=== PATIENT | female | born 1945 | race Caucasian/White ===

== ENCOUNTER → 2017-01-22 | Outpatient (CLI) | payer OTHER ==
[~2017-01-22] MED LIST: ALTACE; APIDRA; AVANDIA; CIPRO250 MG PO; EVISTA60 MG; GLYNASE; HUMALOG MI100 UNIT/4; LASIX20 MG; LIPITOR40 MG; LISINOPRIL-HCTZ1 T21; METFORMIN; METOPROLOL SUCC25 MG; NITROQUICK0.4 MG; NORVASC; PREDNISONE PO; PRILOSEC; PRILOSEC20 M1; ROBAXIN500 MG PO; TYLENOL/CODEINE1 TA1 PO; VITAMIN D250000 UNIT PO; VYTORIN; ZOFRAN PO
--- NOTE | ~2017-01-22 | MY11 ---
[facility] A Service of [facility] RADIOLOGY TEXT RESULTS PATIENT: JUSTIN KELLEY LOCATION: [facility] : 43 UNIT #: [id number] AGE: [address]: CORNELL EMMANUEL MD SEX: F ORDER DR: [id number] [address] [address] [id number] O MR#: [id number] Acc #: [id number] NAME: JUSTIN KELLEY : 1945 SEX: F STUDY DATE/TIME: 01/22/2017 11:30 UNIT: [facility] ROOM: STUDY DESCRIPTION: MY Mammogram Screening Dig Ck Attending Physician: Ilda Emmanuel M.D. Referring Physician: Ilda Emmanuel M.D. Ordering Physician: Ilda Emmanuel M.D. Primary Care Physician: Ilda Emmanuel M.D. MEDICAL IMAGING REPORT This report is preliminary unless electronic signature is present. EXAM Digital screening mammogram 01/22/2017 HISTORY 71-year-old woman, no risk elevation. Annual screen. COMPARISON STUDIES Outside mammograms 01/12/2011 and 03/04/2012 06/06/2013. FINDINGS Digital imaging of each breast was completed utilizing a two-view examination of each breast in craniocaudal and mediolateral-oblique projections. Review and interpretation of digital mammograms include a second review in conjunction with FDA-approved CAD device. There is a normal parenchymal presentation bilaterally consistent with the patient's age. There are no breast masses imaged and no parenchymal asymmetry is visualized. There are no suspicious microcalcifications and I see no focal architectural disturbance. IMPRESSION Negative screening digital mammogram. One-year followup recommended. Patients over the age of 40 are entered into a reminder system with target due date for the next mammogram. A result letter will also be sent to the patient. BIRADS: 1 Negative ADDENDUM Breast parenchyma is fatty replaced Dictated by... [facility] A Service [facility] RADIOLOGY TEXT RESULTS PATIENT: JUSTIN KELLEY LOCATION: [facility] : 43 UNIT #: [id number] AGE: [address]: CORNELL EMMANUEL MD SEX: F ORDER DR: Antonio Monk M.D. THIS IS AN ELECTRONICALLY VERIFIED REPORT Antonio Monk M.D. at 01/30/2017 8:12 AM Jose M TD: 01/29/2017 17:39 JOB #: [id number] MEDICAL IMAGING REPORT Page 1 of 1
--- NOTE | ~2017-01-22 | BD1 ---
[facility] A Service of [facility] RADIOLOGY TEXT RESULTS PATIENT: JUSTIN KELLEY LOCATION: [facility] : 43 UNIT #: [id number] AGE: [address]: CORNELL EMMANUEL MD SEX: F ORDER DR: [id number] [address] [address] [id number] O MR#: [id number] Acc #: [id number] NAME: JUSTIN KELLEY : 1945 SEX: F STUDY DATE/TIME: 01/22/2017 11:52 UNIT: [facility] ROOM: STUDY DESCRIPTION: Dexa Bone Dens 1+ Site Attending Physician: Ilda Emmanuel M.D. Referring Physician: Ilda Emmanuel M.D. Ordering Physician: Ilda Emmanuel M.D. Primary Care Physician: Ilda Emmanuel M.D. MEDICAL IMAGING REPORT This report is preliminary unless electronic signature is present. EXAM DXA scan. HISTORY Postmenopausal screening for osteoporosis. FINDINGS Bone density was assessed utilizing a SensorCathar bone densitometer. Total bone density within the proximal left femur was calculated at 1.108 g/cm2 with a T-score of 0.8. Total bone density in the proximal right femur was calculated at 1.110 g/cm2 with a T-score of 0.8. Due to spinal instrumentation the lumbar spine data could not be utilized. The distal left forearm was assessed with a distal radial bone density of 0.540 g/cm2 with a T-score of 1.6. IMPRESSION Bone density within the proximal femurs and distal left forearm is within 1 standard deviation of the mean and therefore normal according to World Health Organization criteria. Dictated by... Tobi Toure M.D. THIS IS AN ELECTRONICALLY VERIFIED REPORT Tobi Toure M.D. at 01/23/2017 3:31 PM JMS/fainaw [facility] A Service of [facility] RADIOLOGY TEXT RESULTS PATIENT: JUSTIN KELLEY LOCATION: [facility] #: [id number] : 43 UNIT #: [id number] AGE: [address]: CORNELL EMMANUEL MD SEX: F ORDER DR: TD: 01/23/2017 09:40 JOB #: [id number] MEDICAL IMAGING REPORT Page 1 of 1
== END | disposition home or self-care (01) ==
LOC: SMAM 10:45
DX: Z12.31 Encounter for screening mammogram for malignant neoplasm of breast (principal); Z13.820 Encounter for screening for osteoporosis; Z78.0 Asymptomatic menopausal state
CPT/HCPCS: 77080; G0202